=== PATIENT | male | born 1955 | race Caucasian/White ===

== ENCOUNTER 2017-10-16 07:20 | Day surgery (SDC) | payer MEDICARE, BC ==
[2017-10-16] MEDS: SOD CHLORIDE 0.9% 1,000 ML IV (07:00)
[~2017-10-16 07:20] MED LIST: MOXIFLOXACIN 0.5% 3 ML OPH OPER
[2017-10-16] MEDS: PROPARACAINE 0.5% 15 ML OPH OPER (08:07)
[2017-10-16] MEDS: PREDNISOLONE ACET 1% 5 ML OPH OPER (08:08)
[2017-10-16] MEDS: TROPICAMIDE 1% 3 ML OPH OPER (08:09)
[2017-10-16] MEDS: PHENYLephrine 2.5% 15 ML OPH OPER (08:10)
[2017-10-16] MEDS ORDERED: TETRACAINE 0.5% 4 ML OPH (08:40)
[2017-10-16] MEDS ORDERED: LIDOCAINE 4% (MPF) 5 ML INJ (08:40)
[2017-10-16] MEDS: CEFAZOLIN 1 GM INJ (08:41)
[2017-10-16] MEDS ORDERED: EPINEPHrine 1 MG INJ (08:41)
[2017-10-16] MEDS ORDERED: GENTAMICIN 80 MG INJ (08:41)
[2017-10-16] MEDS: CARBACHOL 0.01% 1.5 ML OPH INJ (08:41)
[2017-10-16] MEDS: DEXAMETHASONE 4 MG/ML 1 ML INJ (08:41)
[2017-10-16] MEDS ORDERED: ALBUTEROL 0.083% (NEB) 2.5 MG/3 ML AMP HHN (09:00)
[2017-10-16] MEDS ORDERED: DIPHENHYDRAMINE 50 MG INJ IV (09:00)
[2017-10-16] MEDS ORDERED: LABETALOL HCL 20MG INJ IV (09:00)
[2017-10-16] MEDS ORDERED: OXYCODONE/ACETAMINOPHEN (5/325) TAB PO (09:00)
[2017-10-16] MEDS ORDERED: ONDANSETRON 4 MG INJ IV (09:00)
[2017-10-16] MEDS ORDERED: hydrALAzine 20 MG INJ IV (09:00)
[2017-10-16] MEDS ORDERED: MIDAZOLAM 1 MG/ML 2 ML INJ (09:01)
[2017-10-16] MEDS ORDERED: PROPOFOL 20 ML (09:06)
[2017-10-16] MEDS ORDERED: LIDOCAINE 2% (SDV) 5 ML INJ (09:06)
[2017-10-16] MEDS ORDERED: hydrALAzine 20 MG INJ (09:13)
== END 2017-10-16 11:01 | disposition home or self-care (01) ==
LOC: SDS 07:20
DX: H25.12 Age-related nuclear cataract, left eye (principal); E78.00 Pure hypercholesterolemia, unspecified; I10 Essential (primary) hypertension; G40.909 Epilepsy, unspecified, not intractable, without status epilepticus
CPT/HCPCS: 66984; 82962